=== PATIENT | female | born 1995 | race Two or more races ===

== ENCOUNTER 2017-03-08 10:41 | Emergency (ER) | payer OTHER ==
[~2017-03-08] VITALS: Ht 167.6 cm; Wt 72.6 kg
[2017-03-08] MEDS ORDERED: Lidocaine 1% MPF 10mg/ml 5ml INJ ONE (11:30)
[2017-03-08] MEDS ORDERED: Bacitracin Oint UD TOPIC ONE (11:30)
[2017-03-08 12:40] VITALS: BP 124/58
--- NOTE | 2017-03-08 12:57 | Emergency Room Report ---
History of Present Illness General Chief Complaint: Laceration Source: Patient Present Illness HPI Patient cutting with knife at work just [employer] and cut into L thumb. Saw possible tendon. Tet UTD. Minimal bleed. Pain 4/10, sharp, throbbing when down. Not radiate. R handed. Not . No somatic complaints. 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 Last Menstrual Period: 01/11/17 Now: No Reviewed Nursing Documentation: PMH: Agreed, PSxH: Agreed Nursing Documentation-PMH Past Medical History: No Stated History Review of Systems Constitutional: Denies: fever Genitourinary: Reports: see HPI Musculoskeletal: Reports: see HPI Skin: Reports: see HPI Neurological: Reports: see HPI Hematologic/Lymphatic: Reports: see HPI Physical Exam Vital Signs Date Time Temp Pulse Resp B/P Pulse Ox O2 Delivery O2 Flow Rate FiO2 03/08/17 11:02 98.2 71 14 118/63 99 Room Air General Appearance: well appearing, no apparent distress Head: normocephalic, atraumatic ENT: hearing grossly normal, normal voice Neck: full range of motion, supple Respiratory: no respiratory distress, speaking full sentences Cardiovascular #1: normal capillary refill Musculoskeletal: gait/station normal, normal range of motion Neurologic: alert, motor strength/tone normal, sensory intact Psychiatric: mood/affect normal Skin: no rash, laceration - 2.5 cm L thenar emenence Procedures Laceration/Wound Repair Laceration/Wound Repair : Consent: Verbal Wound Location: upper extremity Wound's Depth, Shape: superficial Wound Length (cm): 2 - 2.5 Wound Explored: clean Betadine Prep?: Yes Anesthesia: 1% Lidocaine Volume Anesthetic (ccs): 1 - 1.5 Wound Debrided: none Wound Repaired With: sutures Suture Size/Type: 5:0, nylon Layer Closure?: No Sterile Dressing Applied?: Yes Splint Applied?: No Patient Tolerated: Well Complications: None Medical Decision Making Diagnostic Impression: Primary Impression: Laceration ER Course Laceration L palm. Needs sutures. Tendons and neurovasc intact. Laceration repaired. Patient stable for outpatient observation and treatment. Status: improved Disposition: HOME, SELF-CARE Condition: Improved Scripts Bacitracin (Bacitracin) 28.4 Gm Oint...g. 1 APPLIC TOPIC BID, #10 GM Prov: Nico Durant M.D. 03/08/17 Referrals: NOT CHOSEN IPA/,REFERRING (PCP) Nico Durant M.D. March 08, 2017 12:57
[2017-03-08] MEDS ORDERED: BACITRACIN15 GM TOPIC (12:59)
[2017-03-08 13:10] VITALS: BP 124/58
== END 2017-03-08 13:10 | disposition home or self-care (01) ==
LOC: EMR 11:46
DX: S61.012A Laceration without foreign body of left thumb without damage to nail, initial encounter (principal); W26.0XXA Contact with knife, initial encounter; Y93.9 Activity, unspecified; Y99.0 Civilian activity done for income or pay